=== PATIENT | female | born 1965 | race Caucasian/White ===

== ENCOUNTER → 2021-02-27 | Outpatient (CLI) | payer OTHER ==
--- NOTE | 2021-02-27 12:25 | RAD ---
Examination: CT of the abdomen pelvis without contrast HISTORY: History of left lower quadrant abdominal pain, inguinal pain Technique: Axial CT images of the abdomen pelvis were performed with contrast. Coronal sagittal refor mats are performed Exposure: One or more of the following individualized dose reduction techniques were utilized for thi s examination: 1. Automated exposure control 2. Adjustment of the mA and/or kV according to patient size 3. Use of iterative reconstruction technique FINDINGS: The bibasilar lungs are clear. No evidence of free air identified in the abdomen. The evaluation of t he solid organs is limited due to lack of IV contrast. The evaluation of bowel is limited due to lack of oral contrast. The visualized noncontrasted liver, spleen, adrenals grossly appears unremarkable. The gallbladder is mildly distended. The stomach is mildly distended. The visualized pancreas grossl y appears unremarkable. The small bowel is nondilated. Feces and gas noted in the colon. The appendix is normal. There is mild fat stranding identified in the anterior pericolonic fat in the mid transverse colon wi th central fat likely epiploic appendagitis, best seen on series 2 image 67. Urinary bladder is mildl y distended. No evidence of intrarenal collecting system calculi or hydronephrosis identified. No martita dence of lytic bony destructive lesion. IMPRESSION: 1.Mild fat stranding identified in the anterior pericolonic fat in the mid transverse colon with cent ral fat likely epiploic appendagitis. 2. No evidence of acute appendicitis. Electronically signed by: Kirby Gallegos MD (02/27/2021 12:22 PM) [id number]
== END ==
LOC: CT 10:44
PROVIDERS: ATTEND Nurse Practitioner Adult Health
DX: E65 Localized adiposity (principal); K82.8 Other specified diseases of gallbladder; N32.89 Other specified disorders of bladder
CPT/HCPCS: 74176